=== PATIENT | male | born 1950 | race Caucasian/White ===

== ENCOUNTER → 2021-03-27 | Outpatient (CLI) | payer MEDICARE, OTHER ==
--- NOTE | 2021-03-27 12:44 | Diagnostic Imaging Report ---
PROCEDURE: CT abdomen and pelvis without contrast. TECHNIQUE: Multiple contiguous axial images were obtained through the abdomen and pelvis without the use of intravenous contrast. Auto Exposure Controls were utilized during the CT exam to meet ALARA standards for radiation dose reduction. INDICATION: Gross hematuria for 4 years, increasing in severity. COMPARISON: No prior studies are available for comparison. FINDINGS: The lung bases are clear. The liver demonstrates numerous circumscribed low attenuation lesions, suggestive of cysts. The largest is in the left lobe measuring 9.4 cm in transverse diameter. The gallbladder is unremarkable. There is no biliary ductal dilatation. The pancreas and spleen are unremarkable. No adrenal mass is identified. No renal calculus or hydronephrosis is seen. No ureteral calculi are identified. The aorta is nonaneurysmal. The bowel loops are of normal caliber. There is no obstruction. No free fluid or fluid collection is seen. The bladder is mostly decompressed. The prostate is markedly enlarged measuring 8.1 cm AP x 9.0 cm transverse. There is a small fat-containing left inguinal hernia. No definite abdominal or pelvic lymphadenopathy is detected. The bony structures are nonacute. IMPRESSION: 1. Hepatic cysts. 2. No definite urinary tract calculi, mass, or hydronephrosis identified. 3. Marked prostatomegaly. Dictated by: Dictated on workstation # [id number]
== END ==
LOC: RAD 12:15
PROVIDERS: ATTEND Urology
DX: N40.0 Benign prostatic hyperplasia without lower urinary tract symptoms (principal); K76.89 Other specified diseases of liver
CPT/HCPCS: 74176